=== PATIENT | male | born 1975 | race Caucasian/White ===

== ENCOUNTER 2016-10-07 17:52 | Emergency (ER) | payer OTHER ==
[2016-10-07] MEDS ORDERED: IBUP-1114 PO (18:05)
[2016-10-07] MEDS ORDERED: MAXA10TA14 PO (18:05)
[2016-10-07] MEDS ORDERED: PROZ10CA7 PO (18:05)
[2016-10-07] MEDS ORDERED: METOCLOPRAMIDE INJ 10MG/2ML VIAL (J2765) IV ONE ×2 (19:15→21:00)
[2016-10-07] MEDS ORDERED: KETOROLAC 30 MG/ML VIAL (J1885) IV ONE (19:15)
[2016-10-07] MEDS ORDERED: diphenhydrAMINE INJ 50MG/ML VIAL (J1200) IV ONE ×2 (19:15→21:00)
--- NOTE | 2016-10-07 20:00 | REPUSA ---
CT of the head Clinical history: Headache. Technique: Multiple axial CT images were obtained through the head without administration of contrast . Findings: The ventricles and sulci are symmetric bilaterally. There is no evidence of acute hemorrhag e or infarct. There is no midline shift, mass effect, or extra-axial fluid collection. The osseous st ructures are unremarkable. The visualized paranasal sinuses and mastoid air cells are clear. Impression: Negative study.
[2016-10-07] MEDS ORDERED: NS 1,000 ML IV ONE (21:00)
[2016-10-07 21:53] VITALS: BP 127/63
--- NOTE | 2016-10-08 08:31 | ECGEPIP ---
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
== END 2016-10-07 22:10 | disposition home or self-care (01) ==
LOC: EDBD 17:52 → M ED 20:09
DX: G43.909 Migraine, unspecified, not intractable, without status migrainosus (principal); R00.8 Other abnormalities of heart beat; Z79.899 Other long term (current) drug therapy
CPT/HCPCS: 70450; 80048; 82550; 82553; 83735; 85025; 93005; 96361; 96374; 96375; 96376; 99284; J1200; J1885; J2765

== ENCOUNTER → 2021-03-24 | Outpatient (CLI) | payer OTHER ==
[~2021-03-24] MED LIST: IBUP-1114 PO; MAXA10TA14 PO; PROZ10CA7 PO
[2021-03-30 01:10] LABS: CALPROTECTIN STOOL 29 ug/g (0-120); PANCREATIC ELASTASE STOOL 408 (>200)
== END ==
LOC: M LAB 11:01
PROVIDERS: ATTEND Internal Medicine Gastroenterology
DX: R19.7 Diarrhea, unspecified (principal)

== ENCOUNTER 2021-06-25 09:45 | Day surgery (SDC) | payer OTHER ==
[~2021-06-25] VITALS: Ht 182.9 cm; Wt 117.5 kg
[~2021-06-25 09:45] MED LIST changes: +DULO1CAP4 PO; +LISI40TA4 PO; +NS 1,000 ML IV ONE; +OMEP1CAP73 PO; +TRAZ-257 PO
[2021-06-25] MEDS ORDERED: LIDOCAINE 2% 100MG/5ML SDV (FOR ANES.) As Ordered ONE (11:09)
[2021-06-25] MEDS ORDERED: propofoL 200 MG/20 ML VIAL As Ordered ONE ×2 (11:09→11:16)
[2021-06-25 11:51] VITALS: BP 131/64
== END 2021-06-25 11:53 | disposition home or self-care (01) ==
LOC: M OPP 09:45
PROVIDERS: ATTEND Internal Medicine Gastroenterology
DX: K62.5 Hemorrhage of anus and rectum (principal); K64.8 Other hemorrhoids; K58.9 Irritable bowel syndrome, unspecified; Z79.899 Other long term (current) drug therapy; Z88.8 Allergy status to other drugs, medicaments and biological substances; Z91.030 Bee allergy status; Z80.0 Family history of malignant neoplasm of digestive organs; Z80.42 Family history of malignant neoplasm of prostate

== ENCOUNTER → 2023-10-10 | Outpatient (CLI) | payer OTHER ==
[~2023-10-10] MED LIST changes: -MAXA10TA14 PO; -NS 1,000 ML IV ONE; +RIZA10TA64 PO
== END ==
LOC: M SLEEP 20:00
PROVIDERS: ATTEND Physician Assistant
DX: G47.33 Obstructive sleep apnea (adult) (pediatric) (principal)